=== PATIENT | male | born 1990 | race Caucasian/White ===

== ENCOUNTER → 2018-11-20 | Outpatient (CLI) | payer OTHER ==
--- NOTE | 2018-11-24 23:14 | SLEEPHOME ---
DATE OF PROCEDURE: 11/20/2018 ORDERED BY: MEKHI Castro Diagnostic home sleep testing was performed due to concern for the obstructive sleep apnea syndrome. For testing, a nocturnal T3 respiratory monitoring device was used. Continuous record was made of pulse, oxygen saturation, airflow, chest, abdominal strain and body position. 9 hours and 59 minutes of data were reviewed. There were 7 hours and 15 minutes marked as time in bed. During the interval marked time in bed, there were 136 respiratory events identified of 10 seconds in duration or greater for a respiratory event index of 18.7. The events were primarily obstructive, but 29 central and mixed apneas were also seen. Baseline pulse rate 67 beats per minute, pulse rate ranged 49-102. Baseline saturation 95%. Saturations fell as low as 86%. Testing was performed in both the supine and nonsupine positions. IMPRESSION Abnormal home sleep testing with repetitive respiratory events and oxygen desaturations to 86% with a respiratory event index of 18.7 is consistent with the obstructive sleep apnea syndrome. RECOMMENDATIONS The patient should be encouraged to undergo formal sleep evaluation and in laboratory pressure titration.
== END ==
LOC: M SLEEP HO 12:05
PROVIDERS: ATTEND Nurse Practitioner Family
DX: R40.0 Somnolence (principal)